=== PATIENT | female | born 1945 | race Caucasian/White ===

== ENCOUNTER 2019-05-17 08:59 | Inpatient (IN) | payer MEDICARE, BC ==
[~2019-05-17] VITALS: Ht 160 cm; Wt 59.0 kg
[2019-05-17 09:05] VITALS: BP 120/76
[2019-05-17 10:12] LABS: ABSOLUTE EOSINOPHILS 0.4 thou/uL (0.0-0.7); ABSOLUTE LYMPHOCYTES 0.7 thou/uL (0.8-5.3); ABSOLUTE MONOCYTES 0.5 thou/uL (0.0-1.2); ABSOLUTE NEUTROPHILS 3.9 thou/uL (1.6-8.1); BASOPHILS 0.5 %; HEMOGLOBIN 10.3 gm/dL (12.0-15.0); LYMPHOCYTES 12.6 %; MCH 30.9 pg (26.0-34.0); MCHC 33.2 g/dL (28.0-37.0); MCV 92.9 fL (80.0-100.0); MONOCYTES 9.5 %; MPV 8.1 fl. (7.2-11.1); NUCLEATED RBCS 0 /100WBC; PLATELET COUNT* 259 thou/uL (150-400); POLYS 70.4 %; RBC 3.34 mil/uL (4.20-5.00); RDW-CV 15.1 % (10.5-14.5); WBC 5.5 thou/uL (4.0-11.0)
[2019-05-17 10:17] LABS: ANION GAP 10 mmol/L (7-16); BUN 7 mg/dL (7-18); CHLORIDE 106 mmol/L (98-107); CO2 26 mmol/L (21-32); CREATININE 0.9 mg/dL (0.6-1.3); GLUCOSE 96 mg/dL (70-99); POTASSIUM 3.9 mmol/L (3.5-5.1); SODIUM 142 mmol/L (136-145)
[2019-05-17 10:18] LABS: APTT 31.9 Seconds (25.0-31.3); PROTIME 10.7 Seconds (9.20-11.50)
[2019-05-17 10:27] LABS: ALBUMIN 2.9 g/dL (3.4-5.0); ALKALINE PHOSPHATASE 78 U/L (46-116); NT-PRO BRAIN NAT PEPTIDE 217 pg/mL (<300); SGOT 17 U/L (15-37); SGPT 16 U/L (30-65); TOTAL BILIRUBIN 0.3 mg/dL (<0.1-1.0); TOTAL PROTEIN 5.7 g/dL (6.4-8.2); TROPONIN-I LEVEL <0.06 ng/mL (<0.06)
[2019-05-17] MEDS ORDERED: LIPITOR 20 MG T20 M1 PO (10:56)
[2019-05-17] MEDS ORDERED: PROPRANOLOL 1010 MG (10:56)
[2019-05-17] MEDS ORDERED: QUINAPRIL 20 MG20 MG PO (10:56)
[2019-05-17] MEDS ORDERED: SONATA5 M1 PO (10:57)
[2019-05-17] MEDS ORDERED: ASPIRIN325 PO (10:57)
[2019-05-17] MEDS ORDERED: VIMPAT150 MG PO (10:57)
[2019-05-17] MEDS ORDERED: FISH OIL 1,001000 M2 PO (10:58)
[2019-05-17] MEDS ORDERED: MAGOX 400400 MG PO (10:58)
[2019-05-17] MEDS ORDERED: VITAMIN D3400 UNIT (10:58)
[2019-05-17] MEDS ORDERED: ZINC CHELATE50 MG PO (10:59)
[2019-05-17] MEDS ORDERED: TUMS PO (10:59)
[2019-05-17] MEDS ORDERED: DEXAMETHASONE 44 M1 PO (11:00)
[2019-05-17] MEDS ORDERED: XGEVA120 MG/1.7 (11:01)
[2019-05-17] MEDS ORDERED: PERJETA420 MG/14 IV (11:01)
[2019-05-17] MEDS ORDERED: HERCEPTIN150 MG IV (11:01)
[2019-05-17] MEDS ORDERED: B12INJ IM (11:02)
[2019-05-17] MEDS ORDERED: FASLODEX250 MG/5 M (11:02)
[2019-05-17] MEDS ORDERED: BACTRIM DS TAB1 EACH PO (11:13)
[2019-05-17 11:26] LABS: URINE BILIRUBIN NEGATIVE (Negative); URINE BLOOD NEGATIVE (Negative); URINE CLARITY CLEAR; URINE COLOR YELLOW; URINE GLUCOSE-RANDOM NEGATIVE (Negative); URINE KETONES NEGATIVE (Negative); URINE LEUKOCYTES-REFLEX NEGATIVE (Negative); URINE NITRITE-REFLEX NEGATIVE (Negative); URINE PROTEIN NEGATIVE (Negative); URINE SPECIFIC GRAVITY <= 1.005 (1.005-1.030); URINE UROBILINOGEN 0.2 E.U./dl (0.2-1.0)
[2019-05-17 11:31] VITALS: BP 105/62
--- NOTE | 2019-05-17 14:06 | EKG ---
[place] [address] ELECTROCARDIOGRAM REPORT Name: TERRANCEROMYE Room: [address] ADM IN ..#: [id number] Admission: 05/17/19 Attend Phys: Graham Arreola MD Discharge: Date of : 45 Report #: [id number] THIS REPORT FOR: //name// [facility] ED Test Date: 2019-05-17 Test Time: 09:59:18 Pat Name: ROMY CARLOS Department: Room: [facility] Gender: F Ammonia Operator: : 1945 Requested By: Osman Ga Order Number: [id number] MD: Jefe Byers Measurements Intervals [place] Rate: 64 P: 0 [place]: 74 QRS: -11 QRSD: 123 T: 15 QT: 475 QTc: 490 Interpretive Statements Sinus rhythm Short [place] interval artifact noted No previous ECG available for comparison Electronically Signed On 05-17-2019 14:06:27 CDT by Jefe Byers [email or web address] <ELECTRONICALLY SIGNED> By: Jefe Byers MD, [facility] 05/17/19 1406 D: [id number] Jefe Byers MD, FACC /EPI
[2019-05-17 15:56] VITALS: BP 119/76
[2019-05-17 20:00] VITALS: BP 92/58
[2019-05-18] VITALS: BP 158/101
[2019-05-18 01:19] VITALS: BP 105/64
[2019-05-18 02:10] LABS: GLYCOHEMOGLOBIN (HGB A1C) 5.2 % (4.8-5.6)
[2019-05-18 04:00] VITALS: BP 107/74
[2019-05-18 05:03] LABS: CHOLESTEROL 114 mg/dL (<200); HDL CHOLESTEROL 40 mg/dL (>40); LDL CHOLESTEROL 56 mg/dL (<100); TC:HDL 2.9 Ratio (Not establshd); TRIGLYCERIDE 94 mg/dL (<150); VLDL 19 mg/dL (<40)
[2019-05-18 05:21] LABS: SERUM ASSESSMENT CLEAR
[2019-05-18 08:29] VITALS: BP 111/73
--- NOTE | 2019-05-18 09:15 | CON ---
[address] [address] CONSULTATION Name: ROMY CARLOS Room: [address] IN M.R.#: [id number] Admission: 05/17/19 Attend Phys: Graham Arreola MD Discharge: Date of : 45 Report #: [id number] THIS REPORT FOR: //name// CC: Graham Arreola Physician staff BRYAN ELLSWORTH DATE OF SERVICE: 05/17/2019 The patient is a 73-year-old female, who states that she was diagnosed with metastatic breast cancer. Apparently, she has an old lesion in the left middle cerebral artery territory, which was treated with gamma knife. The patient lives in [place], [place]. The day prior to admission, she received a chemotherapy injection. She states that at that appointment, she was lightheaded and given IV fluids, but because she would like to visit her son in [place], she and her decided to get in the car and began their trip. Today, the patient felt very lightheaded when she stood up. She still does not feel quite right even when she is lying flat, but is beginning to feel a bit better. The patient has a neurologist and is on Vimpat for seizure disorder and propranolol 60 mg twice a day for essential tremor. She states that another family member had essential tremor. She also stated that her neurologist had wanted to increase her blood pressure medicine to 80 mg twice a day for essential tremor. The patient also relates that 2 nights ago, as she was preparing for her trip, she put out an extra dose of Vimpat and propranolol into both doses. In other words, to 2 doses of both the Vimpat and propranolol at the same time. She went to the ER for that and they told her not to worry about it. PAST MEDICAL HISTORY: Metastatic breast cancer, hypertension, hyperlipidemia, seizure disorder secondary to breast cancer. PAST SURGICAL HISTORY: Left mastectomy and right ankle fusion. MEDICATIONS AT HOME: Atorvastatin 20 mg daily, propranolol 60 mg b.i.d., Accupril 20 mg daily, lacosamide 150 mg b.i.d., Sonata 5 mg daily, aspirin 325 mg daily, fish oil daily, magnesium 400 mg daily, vitamin D 2000 units daily, calcium daily, zinc 50 mg daily, dexamethasone 4 mg daily, Herceptin 150 mg IV weekly, Perjeta 420 mg IV weekly, Faslodex, vitamin B12 of 1000 mcg weekly, and Bactrim 1 tablet b.i.d. ALLERGIES: CODEINE. PHYSICAL EXAMINATION: [place] [address] CONSULTATION Name: ROMY CARLOS Room: [address] IN ..#: [id number] Admission: 05/17/19 Attend Phys: Graham Arreola MD Discharge: Date of : 45 Report #: [id number] VITAL SIGNS: Temperature is 37.1, pulse rate 61, respiratory rate 12, blood pressure 105/62 sitting, 101/64 standing, and bedside pulse oximetry 96. LABORATORY WORK: Hematology: White blood cell count 3.34, hemoglobin 10.3, hematocrit 31. Urinalysis: Unremarkable. Chemistry: Sodium 142, potassium 3.9, chloride 106, carbon dioxide 26, BUN 7, creatinine 0.9, and GFR 61. Liver functions: Unremarkable. IMAGING: CT scan of the head demonstrates no acute finding. Possible metastatic disease seen in the watershed area of the posterior left middle cerebral artery. NEURO EXAM: Cranial nerves 2-12 are grossly intact. I did not see nystagmus. Motor exam demonstrates symmetrical strength in all 4 extremities. The patient has a right ankle fusion. Reflexes are trace throughout. Plantar responses are flexor. Coordination demonstrates no evidence of dysmetria. The patient has an action tremor present in the upper extremities. When she stands, she also has a tremor of the head. IMPRESSION: This patient has metastatic breast cancer with seizure disorder and also essential tremor. I have lowered her dose of propranolol to 40 mg twice a day. She does have an MRI of the head ordered and this is being done with and without contrast to look for additional metastatic lesions. However, I suspect that this lightheaded feeling that she has may be some type of medication effect from her propranolol. I did ask Physical Therapy to come by and do bilateral Jose maneuver, but I wonder how much benefit this will be. After the Jose maneuver, she should not bend forward for 24 hours at least and should sleep in a more upright position. I will discuss this with her nurse. She is on B12 supplementation and I will order a B12 level. I have also put her back on her lacosamide 150 mg twice a day. I thank you for your kind referral of the patient. <ELECTRONICALLY SIGNED> By: Mayda Dominguez DO 05/18/19 0915 1205 [id number] Dominguez DO /nt
[2019-05-18 10:34] VITALS: BP 111/73
--- NOTE | 2019-05-19 13:51 | CON ---
[address] [address] CONSULTATION Name: ROMY CARLOS Room: [address] IN M.R.#: [id number] Admission: 05/17/19 Attend Phys: Graham Arreola MD Discharge: 05/18/19 Date of : 45 Report #: [id number] THIS REPORT FOR: //name// CC: Graham Arreola Physician staff BRYAN ELLSWORTH DATE OF SERVICE: 05/17/2019 INPATIENT CONSULTATION DIAGNOSIS: Metastatic breast cancer with questionable brain metastases. SUBJECTIVE: This is a 73-year-old female who is being treated for metastatic disease. Per the patient, she has been previously on a combination of chemotherapy and Herceptin with Perjeta. Then after that, she was switched to Faslodex, which is an endocrine treatment along with her anti-HER2 infusions. She usually lives in [place] and she was staying in a hotel when she developed lightheadedness with nausea and vomiting. She had a previous CT scan and she had a FI[employer] involvement which was treated with a gamma knife surgery. The patient was evaluated at the Emergency Room. A CT scan of the head, which showed no acute cerebral findings; however, there is septal abnormalities posterior left watershed region at the lower ventricular level, reflects local metastatic disease along the posterior left MCA territory. The patient is in the process of having an MRI of the head. REVIEW OF SYSTEMS: All systems were reviewed. It was negative except the above. 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 In addition to that past medical history, hypertension, dyslipidemia. MEDICATIONS: Per admission list. ALLERGIES: OXYCODONE. SOCIAL HISTORY: No smoking, no alcohol abuse, no drug abuse. FAMILY HISTORY: Noncontributory. PHYSICAL EXAMINATION: VITAL SIGNS: Today, temperature 37.1, pulse 61, respirations 12, blood pressure is 110/70. SpO2 is 97% on room air. GENERAL: The patient was sitting in chair, [place] [address] CONSULTATION Name: TERRANCEAUREA Room: [address] IN ..#: [id number] Admission: 05/17/19 Attend Phys: Graham Arreola MD Discharge: 05/18/19 Date of : 45 Report #: [id number] LUNGS: Clear to auscultations bilaterally. HEART: Regular rate and rhythm. S1, S2 within normal limits. ABDOMEN: Soft, nontender, nondistended. Bowel sounds positive. LABORATORY DATA: Today, WBC 5.5, hemoglobin 10.3, platelets is 259. PT is 10.7, INR is 31.9. Chemistry showed sodium is 142, potassium is 3.9, creatinine 0.9, total bilirubin 0.3, AST 17, ALT 16, alkaline phosphatase 78. ASSESSMENT AND PLAN: A 73-year-old patient who has been well established for treatment of metastatic breast cancer. 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 At this point, the patient has been switched to Faslodex, which is an endocrine treatment along with Herceptin and Perjeta. RECOMMENDATIONS: 1. I would like to wait for the brain MRI. The patient reported that she had a prior FIREARMS [employer] metastasis which was treated with a gamma knife and this is most likely represents abnormal findings of the CT scan. However, we need to obtain MRI to evaluate any new metastatic disease versus acute infarct. 2. The patient reported that she would like to come back to [place] to receive further treatment. I would like to hold on to obtain systemic imaging until we receive the MRI findings. <ELECTRONICALLY SIGNED> By: Isaak hZou MD 05/19/19 1351 1345 [id number] Zhou MD /nt
== END 2019-05-18 11:53 | disposition home or self-care (01) | DRG 597 ==
LOC: M.ERS 08:59 → M.2W 10:40 → M.TBA-ER 10:40 → M.2W 11:51
PROVIDERS: Emergency Medicine Emergency Medical Services; ADMIT Internal Medicine
DX: C50.919 Malignant neoplasm of unspecified site of unspecified female breast (principal); E43 Unspecified severe protein-calorie malnutrition; T44.7X5A Adverse effect of beta-adrenoreceptor antagonists, initial encounter; R42 Dizziness and giddiness; I10 Essential (primary) hypertension; E78.5 Hyperlipidemia, unspecified; G40.909 Epilepsy, unspecified, not intractable, without status epilepticus; G25.0 Essential tremor; E86.0 Dehydration; I95.9 Hypotension, unspecified; Y92.89 Other specified places as the place of occurrence of the external cause; Z79.82 Long term (current) use of aspirin; Z85.05 Personal history of malignant neoplasm of liver; Z90.12 Acquired absence of left breast and nipple; Z85.841 Personal history of malignant neoplasm of brain; Z85.118 Personal history of other malignant neoplasm of bronchus and lung; Z88.6 Allergy status to analgesic agent; Z68.23 Body mass index [BMI] 23.0-23.9, adult; Z79.899 Other long term (current) drug therapy